=== PATIENT | female | born 1990 | race African-American/Black ===

== ENCOUNTER 2018-02-22 09:40 | Emergency (ER) | payer MEDICARE, MEDICAID ==
[~2018-02-22] VITALS: Ht 137.2 cm; Wt 55.0 kg
[2018-02-22 10:38] LABS: HEMATOCRIT. 36.4 % (36.0-48.0); HEMOGLOBIN. 12.4 g/dL (12.0-16.0); MEAN CORPUSCULAR HEMOGLOBIN 29.7 pg (28.0-32.0); MEAN CORPUSCULAR VOLUME 87.2 fL (81.0-99.0); MEAN PLATELET VOLUME 8.2 fl (7.4-10.4); PLATELET 270 x1000/uL (130-400); RED BLOOD CELL COUNT 4.17 mill/uL (4.2-5.4)
[2018-02-22 10:45] LABS: CHLORIDE 105 mEq/L (98-107)
[2018-02-22 10:46] LABS: INR 1.1; PARTIAL THROMBOPLASTIN TIME 21.9 sec (23.4-31.0); PROTHROMBIN TIME 10.9 sec (9.4-11.6)
[2018-02-22 10:57] LABS: PLATELET ESTIMATE NORMAL
[2018-02-22 11:48] LABS: HCG SCREEN NEGATIVE
[2018-02-22 13:26] VITALS: BP 139/76
== END 2018-02-22 13:28 | disposition home or self-care (01) ==
LOC: ER 09:50
DX: R04.0 Epistaxis (principal); G80.8 Other cerebral palsy; G40.909 Epilepsy, unspecified, not intractable, without status epilepticus
CPT/HCPCS: 36415; 80048; 84703; 85025; 85610; 85730; 99284